=== PATIENT | female | born 2005 | race Two or more races ===

== ENCOUNTER 2024-08-31 09:11 | Emergency (ER) | payer OTHER ==
[~2024-08-31] VITALS: Ht 175.3 cm; Wt 86.2 kg
[2024-08-31] MEDS ORDERED: ONDANSETRON HCL 2 MG/ML VIAL IV SCH (09:41)
[2024-08-31] MEDS ORDERED: KETOROLAC TROMETHAMINE 15 MG VIAL IV ONE (09:45)
[2024-08-31] MEDS ORDERED: 0.9 % SODIUM CHLORIDE 1,000 ML IV SCH (09:45)
[2024-08-31] MEDS ORDERED: METRONIDAZOLE/SODIUM CHLORIDE 500 MG/100 ML PIGGYBACK IV ONE (10:15)
[2024-08-31] MEDS ORDERED: CIPROFLOXACIN IN 5 % DEXTROSE 400 MG/200 ML PIGGYBAG IV ONE (10:15)
[2024-08-31] MEDS ORDERED: FAMOtidine 10 MG/ML (4ML VIAL) IV ONE (10:15)
[2024-08-31] MEDS ORDERED: KETOROLAC TROMETHAMINE 60 MG VIAL IM ONE (10:15)
[2024-08-31 10:49] LABS: HEMATOCRIT 41.4 % (36.0-45.00); HEMOGLOBIN 13.9 g/dL (12.0-15.00); MEAN CELL VOLUME 96.8 fL (80.00-100.00); MEAN CORPUSCULAR HEMOGLOBIN 32.6 pg (27.00-32.0); MEAN CORPUSCULAR HGB CONC 33.7 g/dl (32.0-36.0); PLATELET COUNT 317 K/uL (150-450); RED BLOOD COUNT 4.27 M/uL (4.00-6.00); RED CELL DISTRIBUTION WIDTH 12.1 % (11.5-14.5)
[2024-08-31 11:28] LABS: PH,URINE 6.5 (5.0-8.0); URINE APPEARANCE Clear; URINE BACTERIA 2338.3 uL (0.0-1933); URINE BILIRRUBIN Negative (NEGATIVE); URINE BLOOD Negative; URINE COLOR Yellow; URINE GLUCOSE Negative (NEGATIVE); URINE KETONE Negative (NEGATIVE); URINE LEUKOCYTE Small; URINE NITRATE Negative; URINE PROTEIN Negative (NEGATIVE); URINE UROBILINOGEN 0.2 E.U./dl; URINE WBC 235.6 uL (0.0-23.2)
[2024-08-31 11:42] LABS: ALBUMIN 4.4 gm/dL (3.4-5.0); BILIRUBIN TOTAL 1.29 mg/dL (0.3-1.2); CALCIUM 9.5 mg/dL (8.5-10.1); CREATININE SERUM 0.85 mg/dL (0.55-1.02); GFR 84.43; GLOBULINA 3.7 G/DL (2.4-3.5); POTASSIUM 3.98 mEq/L (3.5-5.1); TOTAL PROTEIN 8.1 gm/dL (6.4-8.2)
[2024-08-31] MEDS ORDERED: DICYCLOMINE HCL 20 MG TABLET PO ONE (13:30)
[2024-08-31] MEDS ORDERED: KETOROLAC TROMETHAMINE 30 MG VIAL IU ONE (13:45)
[2024-08-31] MEDS ORDERED: CIPRO500 MG PO (14:23)
[2024-08-31] MEDS ORDERED: PEPCID AC20 MG PO (14:23)
[2024-08-31] MEDS ORDERED: DICY20TA PO (14:23)
[2024-08-31] MEDS ORDERED: METRONIDAZOLE500 MG PO (14:23)
[2024-08-31] MEDS ORDERED: ZOFRAN8 MG PO (14:23)
== END 2024-08-31 14:47 | disposition home or self-care (01) ==
LOC: EMR PED 09:13 → ER 09:13 → EDBD 09:13 → ER 11:22
PROVIDERS: Student in an Organized Health Care Education/Training Program
DX: K52.89 Other specified noninfective gastroenteritis and colitis (principal)